=== PATIENT | female | born 1950 | race Caucasian/White ===

== ENCOUNTER 2018-12-30 10:21 | Emergency (ER) | payer MEDICARE, BC ==
[2018-12-30] MEDS ORDERED: EPINEPHRINE INJ/PF 1 MG/1 ML AMPULE IM ONE (10:40)
[2018-12-30] MEDS ORDERED: HYDROXYZINE PAMOATE 50 MG CAPSULE PO ONE (10:48)
[2018-12-30] MEDS ORDERED: METHYLPREDNISOLONE INJ 125 MG/2 ML SDV IV ONE (10:48)
[2018-12-30] MEDS ORDERED: FAMOTIDINE INJ/PF 20 MG/2 ML SDV IV ONE (10:48)
--- NOTE | 2018-12-30 10:48 | ER Document Report ---
ED Medical Screen (RME) - General Chief Complaint: Allergic Reaction Stated Complaint: POSSIBLE ALLERGIC REACTION Time Seen by Provider: 12/30/18 10:40 Primary Care Provider: ALICE JAMESON MD [Primary Care Provider] - Follow up as needed Mode of Arrival: Ambulatory Information source: Patient Notes: 68-year-old female presents with complaint of itching, shortness of breath, nausea and diarrhea after taking amoxicillin. Patient is allergic to Benadryl. She has taken amoxicillin before without this reaction. She states that she was taking it for dental procedure. I have greeted and performed a rapid initial assessment of this patient. A comprehensive ED assessment and evaluation of the patient, analysis of test results and completion of medical decision making process we will be contacted by additional ED providers. PHYSICAL EXAMINATION: Vital signs reviewed GENERAL: Mild distress LUNGS: No respiratory distress Musculoskeletal: Normal range of motion NEUROLOGICAL: Normal speech, normal gait. PSYCH: Normal mood, normal affect. SKIN: Diffuse erythema TRAVEL OUTSIDE OF THE [place] IN LAST 30 DAYS: No - HPI Onset: Just prior to arrival Onset/Duration: Sudden Quality of pain: Other - Itching Severity: Moderate Associated Symptoms: Diarrhea, Nausea, Shortness of breath Exacerbated by: Denies Relieved by: Denies Similar symptoms previously: No Recently seen / treated by doctor: Yes - Related Data Smoking: Non-smoker Frequency of alcohol use: None Drug Abuse: None Allergies/Adverse Reactions: amoxicillin Allergy (Verified 12/30/18 10:26) diphenhydramine [From Benadryl] Allergy (Verified 12/30/18 10:26) Past Medical History - Social History Frequency of alcohol use: None Drug Abuse: None Renal/ Medical History: Denies: Hx Peritoneal Dialysis Past Surgical History: Reports: Hx Orthopedic Surgery - knee replacement Physical Exam - Vital signs Vitals: Temp Pulse Resp BP Pulse Ox 97.5 F 78 20 124/55 L 94 12/30/18 10:12/30/18 10:12/30/18 10:12/30/18 10:12/30/18 10:28 Course - Vital Signs Vital signs: Temp Pulse Resp BP Pulse Ox 97.5 F 78 20 124/55 L 94 12/30/18 10:12/30/18 10:12/30/18 10:12/30/18 10:28 12/30/18 10:28 Doctor's Discharge - Discharge Referrals: ALICE JAMESON MD [Primary Care Provider] - Follow up as needed
--- NOTE | 2018-12-30 10:51 | ER Document Report ---
ED Allergic Reaction - General Chief Complaint: Allergic Reaction Stated Complaint: POSSIBLE ALLERGIC REACTION Time Seen by Provider: 12/30/18 10:40 Primary Care Provider: ALICE JAMESON MD [Primary Care Provider] - Follow up as needed Mode of Arrival: Ambulatory Notes: 68-year-old female who took an amoxicillin 8:15 AM this morning. Began to have itching afterwards. Stated that her throat felt a little tight and she had some indigestion type feeling. She stated she is come here to the ER thinking she had allergic reaction she has rash all over and hives. Upon arrival into the room the patient states her throat feels scratchy but no trouble swallowing she denies any difficulty breathing at this time. No chest pain. Patient stated her main complaint she is is itching all over. TRAVEL OUTSIDE OF THE [place] IN LAST 30 DAYS: No - Related Data Allergies/Adverse Reactions: amoxicillin Allergy (Verified 12/30/18 10:26) diphenhydramine [From Benadryl] Allergy (Verified 12/30/18 10:26) Past Medical History - General Information source: Patient - Social History Smoking Status: Never Smoker Frequency of alcohol use: None Drug Abuse: None Family History: None Patient has suicidal ideation: No Patient has homicidal ideation: No Renal/ Medical History: Denies: Hx Peritoneal Dialysis Past Surgical History: Reports: Hx Orthopedic Surgery - knee replacement Review of Systems - Review of Systems Cardiovascular: Chest pain Respiratory: Short of breath. denies: Cough Skin: Change in color, Rash -: Yes All other systems reviewed and negative Physical Exam - Vital signs Vitals: Temp Pulse Resp BP Pulse Ox 97.5 F 78 20 124/55 L 94 12/30/18 10:28 12/30/18 10:28 12/30/18 10:28 12/30/18 10:28 12/30/18 10:28 - Notes Notes: GENERAL_APPEARANCE: well_nourished, alert, cooperative, no_acute_distress, no_obvious_discomfort. VITALS: reviewed, see vital signs table. HEAD: no_swelling\tenderness on the head. EYES: PERRL, EOMI, conjunctiva_clear. NOSE: no_nasal_discharge. MOUTH: (-)decreased moisture. THROAT: no_throat_inflammation, no_airway_obstruction. no_lymphadenopathy, no uvular inflammation no drooling no stridor NECK: supple, no_neck_tenderness, (-)thyromegaly. BACK: no_back_tenderness. CHEST_WALL: no_chest_tenderness. LUNGS: no_wheezing, no_rales, no_rhonchi, (-)accessory muscle use, good air exchange bilateral. HEART: normal_rate, normal_rhythm, normal_S1, normal_S2, (-)S3, (-)S4, no_murmur, no_rub. ABDOMEN: normal_BS, soft, no_abd_tenderness, (-)guarding, (-)rebound, no_organomegaly, no_abd_masses. EXTREMITIES: good pulses in all_extremities, no_swelling\tenderness in the extremities, no_edema. SKIN: warm, dry, good_color, diffuse urticaria and redness on trunk and extremities. MENTAL_STATUS: speech_clear, oriented_X_3, normal_affect, responds_appropriately to questions. NEURO: Neg Motor or Sensory Deficits on exam, CN 2-12 intact, DTR 2+ symmetric x 4, No cerbellar signs Course - Re-evaluation Re-evalutation: 12/30/18 10:52 Patient looks to be having a mild reaction to amoxicillin. Her throat is not swollen she has no drooling or stridor I can see back into her airway without difficulty she is a Mallampati 1 airway. She has no wheezing. This appears to be strictly dermatological she stated that she had a little bit of nausea and some mild chest discomfort at first but she says she feels better now and got herself calmed down. 12/30/18 10:53 The patient will be given steroids Pepcid and Vistaril. She is allergic to Benadryl. Patient initially was ordered epinephrine by triage however with no throat swelling no drooling no stridor no wheezing. I do not believe that this is needed at this time. At the patient's age I think this would only risk tachycardia and provide little benefit at this time however we will keep it in reserve and ready. At this time the patient is feeling much better. We will give her the medicines and observe her. We will get an EKG. 12/30/18 13:15 Reevaluated patient feels much better. Will discharge home with a Medrol Dosepak and Vistaril for home. 12/30/18 13:15 Rash is completely gone. - Vital Signs Vital signs: Temp Pulse Resp BP Pulse Ox 97.5 F 78 20 124/55 L 94 12/30/18 10:28 12/30/18 10:28 12/30/18 10:28 12/30/18 10:28 12/30/18 10:28 - EKG Interpretation by Me EKG shows normal: Sinus rhythm Rate: Normal Rhythm: NSR Discharge - Discharge Clinical Impression: Allergic reaction caused by a drug Qualifiers: Encounter type: initial encounter Qualified Code(s): T78.40XA - Allergy, unspecified, initial encounter Condition: Good Disposition: HOME, SELF-CARE Instructions: Acute Allergic Reaction to Drugs ([facility]) Additional Instructions: Stop amoxicillin Prescriptions: Hydroxyzine Pamoate [Vistaril 25 mg Capsule] 25 mg PO DAILY #30 capsule Methylprednisolone [Medrol Dosepack (4 mg/Tab) 21 Tab/Dosepak] 4 mg PO ASDIR PRN #[id number] tab.ds.[id number] PRN Reason: Referrals: ALICE JAMESON MD [Primary Care Provider] - Follow up as needed
--- NOTE | 2018-12-30 13:07 | EKG REPORT ---
SEVERITY:- NORMAL ECG - SINUS RHYTHM : Confirmed by: Zuhair Robison MD 30-Dec-2018 13:07:07
[2018-12-30 13:29] VITALS: BP 146/68
== END 2018-12-30 13:29 | disposition home or self-care (01) ==
LOC: ER 10:21
DX: T78.40XA Allergy, unspecified, initial encounter (principal); R06.02 Shortness of breath; R07.9 Chest pain, unspecified; R21 Rash and other nonspecific skin eruption; Z88.0 Allergy status to penicillin
CPT/HCPCS: 93005; 99283; 96374; 96375; 93010; A9270; J2930; S0028

== ENCOUNTER 2019-08-17 17:26 | Emergency (ER) | payer OTHER, MEDICARE ==
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
[2019-08-17 20:50] VITALS: BP 170/74
== END 2019-08-17 21:02 | disposition home or self-care (01) ==
LOC: ER 17:26
DX: M25.552 Pain in left hip (principal); M25.562 Pain in left knee; W22.8XXA Striking against or struck by other objects, initial encounter; F17.210 Nicotine dependence, cigarettes, uncomplicated
CPT/HCPCS: 99283

== ENCOUNTER → 2020-08-19 | Outpatient (CLI) | payer MEDICARE ==
[2020-08-19 12:51] VITALS: BP 138/74
--- NOTE | 2020-08-19 12:51 | ER RDC ASSESSMENT REPORT ---
Intake - In the Last 14 days Have you traveled outside [place]?: No Have you been in close contact with someone CONFIRMED: Yes Worked in Healthcare?: Yes --Where?: Patient works in [employer] at [employer]. - Symptoms Subjective Fever([place] feverish): No Chills: No Muscule Aches: Yes Runny Nose: No Sore Throat: Yes Cough (New or worsening chronic cough): No Shortness of breath: No Nausea or Vomiting: Yes Headache: Yes Abdominal Pain: No Diarrhea(3 or more loose stools in last 24 hours): Yes - Do you have any of the following Chronic lung disease: Asthma or emphysema or COPD: No Cystic Fibrosis: No Diabetes: No High Blood Pressure: No Cardiovascular Disease: No Chronic Kidney Disease: No Chronic Liver Disease: No Chronic blood disorder like Sickle Cell Disease: No Weak immune system due to disease or medication: No Neurologic condition that limits movement: No Developmental delay - Moderate to Severe: No Recent (within past 2 weeks) or current : No Morbid Obesity (>100 pounds over ideal weight): No Obesity Comment: Height 5 feet 2 inches weight 135 pounds - Objective Temperature: 97.9 F Pulse Rate: 71 Respiratory Rate: 18 Blood Pressure: 138/74 O2 Sat by Pulse Oximetry: 96 Objective: Given above, testing performed: If Testing Performed: Test Specimen Type Sent to General - General Information source: Patient Notes: Patient here at [facility] for COVID testing patient is employee at [employer] works in [employer]. Patient reports has been exposed to somebody that tested positive at work. Reports starting having symptoms several days ago which include muscle aches sore throat nausea headache diarrhea. Patient's PCP is Dr. Obregon and will follow up with her. - Related Data Allergies/Adverse Reactions: amoxicillin Allergy (Verified 12/30/18 10:26) diphenhydramine [From Benadryl] Allergy (Verified 12/30/18 10:26) Past Medical History - General Information source: Patient - Social History Smoking Status: Current Every Day Smoker - Smokes 1/2 pack a day Family History: None Renal/ Medical History: Denies: Hx Peritoneal Dialysis Musculoskeletal Medical History: Reports Hx Arthritis Past Surgical History: Reports: Hx Orthopedic Surgery - knee replacement Physical Exam - General General appearance: Appears well, Alert In distress: None Notes: PHYSICAL EXAMINATION: GENERAL: Well-appearing and in no acute distress. HEAD: Atraumatic, normocephalic. EYES: sclera anicteric, conjunctiva are normal. ENT: nares patent. Moist mucous membranes. NECK: Normal range of motion, supple without lymphadenopathy LUNGS: CTAB and equal. No wheezes rales or rhonchi. Resp even and unlabored. Lung sounds clear. HEART: Regular rate and rhythm without murmurs ABDOMEN: Soft, nontender, normal bowel sounds, no guarding. EXTREMITIES: Normal range of motion, no pitting edema. No cyanosis. NEUROLOGICAL: Cranial nerves grossly intact. Normal speech. Normal gait. PSYCH: Normal mood, normal affect. SKIN: Warm, Dry, normal turgor, no rashes or lesions noted Diagnostic Results Laboratory Results: Patient informed of negative rapid strep and negative rapid flu results. Pending strep culture pending covid testing results. Patient provided instructions regarding covid to include: As a person under investigation for Covid 19, the [place] department of Health and Human Services, division of public health advises you to adhere to the following guidance until your test results are reported to you. If your test result is positive, you will receive additional information from your provider and your local health department at that time. Remain at home until you are cleared by the health provider or public health authorities. Keep a log of visitors to your home, notify any visitors to your home of your isolation status. If you plan to move to a new address or leave the [facility], notify the local [facility] th department in your [facility]. Call your doctor or seek care if you have an urgent medical need. Before seeking medical care, call ahead to get instructions from the provider before arriving at the medical office clinic or hospital. Notify them that you are being tested for the virus that causes Covid 19 so that arrangements can be made, as necessary, to prevent transmission to others in the healthcare setting. Next, notify the local health department in your county. If a medical emergency arises and you need to call 911, inform the first responders that you are being tested for the virus that causes Covid 19. Next, notify the local health department in your county. Patient Education/Counseling Counseling/Education: Patient presents with upper respiratory symptoms worrisome for possible Covid 19. Patient does not have emergency worring symptoms such as difficulty breathing, shortness of breath, chest pain, pressure, confusion or cyanosis. Patient appears suitable for discharge. Patient's vital signs are stable and patient is nontoxic in appearance. Good return precautions have been discussed with patient, patient verbalized understanding and is agreeable with discharge plan of care at this time. C Discharge - Discharge Condition: Stable Disposition: Home; Selfcare
[2020-08-19 14:18] LABS: A TYPE INFLUENZA AG NEGATIVE (NEGATIVE); B INFLUENZA AG NEGATIVE (NEGATIVE)
== END ==
LOC: RDC 11:58
PROVIDERS: ATTEND Nurse Practitioner Family
DX: J06.9 Acute upper respiratory infection, unspecified (principal); Z20.828 Contact with and (suspected) exposure to other viral communicable diseases; J02.9 Acute pharyngitis, unspecified; M79.10 Myalgia, unspecified site; R11.0 Nausea; R51.9 Headache, unspecified; R19.7 Diarrhea, unspecified; F17.200 Nicotine dependence, unspecified, uncomplicated; M13.80 Other specified arthritis, unspecified site; Z88.1 Allergy status to other antibiotic agents; Z88.8 Allergy status to other drugs, medicaments and biological substances
CPT/HCPCS: 87070; 87880; 87804; U0003; C9803; 87635; 99201; 99211

== ENCOUNTER → 2020-11-16 | Outpatient (CLI) | payer BC, MEDICARE ==
[~2020-11-16] MED LIST: COVID-19 VACCINE (PFIZER)/PF 30 MCG/0.3 ML VIAL IM ONE; EPINEPHRINE INJ/PF 1 MG/1 ML AMPULE IM PRN
== END ==
LOC: EMPHEALTH 11:28
PROVIDERS: ATTEND Internal Medicine
DX: Z23 Encounter for immunization (principal)
CPT/HCPCS: 91300

== ENCOUNTER → 2020-12-07 | Outpatient (CLI) | payer BC, MEDICARE | LOC: EMPHEALTH 14:51 | PROVIDERS: ATTEND Internal Medicine | DX: Z23 Encounter for immunization (principal) | CPT/HCPCS: 91300 ==